=== PATIENT | male | born 1940 | race Caucasian/White ===

== ENCOUNTER 2022-01-14 19:19 | Emergency (ER) | payer OTHER, MEDICARE ==
[~2022-01-14] VITALS: Ht 185.4 cm; Wt 90.5 kg
[2022-01-14 19:24] VITALS: TEMP 97.8
[2022-01-14 21:05] VITALS: BP 130/78; PULSE 74
== END 2022-01-14 21:05 | disposition home or self-care (01) ==
LOC: COL.ER 19:19
DX: S73.004A Unspecified dislocation of right hip, initial encounter (principal); Z96.641 Presence of right artificial hip joint; V48.4XXA Person boarding or alighting a car injured in noncollision transport accident, initial encounter
CPT/HCPCS: J2250; J2704; J7030